=== PATIENT | male | born 1975 | race African-American/Black ===

== ENCOUNTER 2018-01-16 13:59 | Emergency (ER) | payer BC, OTHER ==
[~2018-01-16] VITALS: Ht 172.7 cm; Wt 65.8 kg
[~2018-01-16 13:59] MED LIST: IBUPROFEN600 MG ORAL; IBUPROFEN800 MG ORAL; NKM; NORCO 5-325 TA1 EACH ORAL; TRAMADOL HCL50 MG ORAL
[2018-01-16 14:11] VITALS: BP 144/97
[2018-01-16] MEDS ORDERED: Acetaminophen 500mg (ES) tab ORAL ONE (14:15)
--- NOTE | 2018-01-16 14:48 | Emergency Room Report ---
History of Present Illness General Chief Complaint: Upper Extremity Injury Source: Patient Present Illness HPI 42-year-old male patient reports the ER complaining of right elbow pain status post falling off his skateboard 1 week ago. states that the pain and swelling have subsided but because the pain is still present he wanted to come in and get evaluated. reports pain in elbow moving to the wrist. Reports pain with movement. Reports right-hand dominant. Reports decreased range of motion secondary to the pain. Denies hitting his head or loss of consciousness. Denies fever, chest pain, shortness of breath, other acute symptoms. Allergies: Coded Allergies: No Known Allergies (Unverified , 12/16/13) Patient History Past Medical History: see triage record Reviewed Nursing Documentation: PMH: Agreed; PSxH: Agreed Nursing Documentation-PMH Past Medical History: No Stated History Review of Systems All Other Systems: negative except mentioned in HPI Physical Exam Vital Signs Date Time Temp Pulse Resp B/P (MAP) Pulse Ox O2 Delivery O2 Flow Rate FiO2 01/16/18 14:01 98.8 78 18 144/97 98 Room Air 98.8 Sp02 EP Interpretation: reviewed, normal General Appearance: well appearing, no apparent distress, alert, GCS 15, non- toxic Head: normocephalic, atraumatic Eyes: bilateral eye normal inspection, bilateral eye PERRL ENT: hearing grossly normal, normal pharynx, no angioedema, normal voice, uvula midline, moist mucus membranes Neck: full range of motion Respiratory: lungs clear, normal breath sounds, no rhonchi, no respiratory distress, no accessory muscle use, no wheezing, speaking full sentences Cardiovascular #1: regular rate, rhythm, no edema Cardiovascular #2: 2+ radial (R), 2+ radial (L) Musculoskeletal: back normal, digits/nails normal, gait/station normal, normal range of motion, other - AIN, PID, radial nerve is intact, no snuffbox tenderness, no erythema or ecchymosis, no edema, no deformity, tender - right elbow over medial and lateral aspect Neurologic: alert, oriented x3, responsive, motor strength/tone normal, sensory intact Psychiatric: mood/affect normal Skin: no rash Medical Decision Making PA Attestation Dr. Vallejo is my supervising Physician whom patient management has been discussed with. Diagnostic Impression: Primary Impression: Elbow pain, right Additional Impression: Wrist pain ER Course Pt. presents to the ED c/o right elbow and wrist pain. Ddx considered but are not limited to fracture, sprain, strain, contusion, dislocation. No erythema, no warmth to touch, no fever, nontoxic appearing, low suspicion for septic joint. Vital signs: are WNL, pt. is afebrile Ordered X-ray and pain medication. ER COURSE Provided with pain medication. An X-ray of the right elbow negative for acute disease, shows appearance of possible joint effusion, no posterior sail sign per preliminary reading. Consult with Dr. Vallejo, agrees with x-ray interpretation. An X-ray of the right wrist negative for acute disease per the preliminary reading. Sent image to [facility] for official reading. Agrees with preliminary readings. Thumb spica splint was applied to the right wrist and arm sling applied to right arm, was checked afterwards by me showing good alignment and support with distal neurovascular functioning intact. may remove splint and sling at home to perform range of motion exercises to help prevent stiffness. Patient instructed on RICE method: rest, ice, compression, elevation. Patient instructed on rest, ice and heat. Patient instructed to be WBAT Followup with primary care provider. Discuss referral to ortho/pain management/ PT as needed. Discuss further imaging with MRI/CT as needed. DISCHARGE: -Rx provided for Ibuprofen for pain symptoms. At this time pt. is stable for d/c to home. Patient is resting comfortably, in no acute distress, nontoxic appearing, talking without difficulty. Will provide printed patient care instructions, and any necessary prescriptions. Patient instructed to follow with primary care provider in 3 - 5 days and to request further follow-up as needed. Care plan and follow up instructions have been discussed with the patient prior to discharge. Take medications as directed. Patient questions asked and answered. Patient reports understanding and agreement to treatment plan. ER precautions given, patient instructed to return to ER immediately for any new or worsening of symptoms. - Please note that this Emergency Department Report was dictated using [employer] tender technology software, occasionally this can lead to erroneous entry secondary to interpretation by the dictation equipment. Other X-Ray Diagnostic Results Other X-Ray Diagnostic Results #1: X-Ray ordered: right elbow # of Views/Limited Vs Complete: 3 View Indication: Pain EP Interpretation: Yes PA Xray: Interpretation reviewed, by supervising MD, and agrees with findings. Interpretation: no dislocation, no soft tissue swelling, no fractures, other - possible joint effusion noted Impression: No acute disease MEHDI Scribe Text Bryce Walker PA-C Other X-Ray Diagnostic Results #2: X-Ray ordered: right wrist # of Views/Limited Vs Complete: 3 View Indication: Pain EP Interpretation: Yes PA Xray: Interpretation reviewed, by supervising MD, and agrees with findings. Interpretation: no dislocation, no soft tissue swelling, no fractures Impression: No acute disease PA Scribe Raulito Walker PA-C Last Vital Signs Date Time Temp Pulse Resp B/P (MAP) Pulse Ox O2 Delivery O2 Flow Rate FiO2 01/16/18 14:18 98.8 01/16/18 14:11 18 144/97 98 Room Air 01/16/18 14:01 78 Disposition: HOME, SELF-CARE Condition: Stable Scripts Ibuprofen* (MOTRIN*) 800 Mg Tablet 800 MG ORAL Q8H, #30 TAB 0 Refills Prov: Dino Walker 01/16/18 Patient Instructions: Elbow Contusion, [id number], Wrist Pain, [id number] Additional Instructions: Patient instructed to follow up with primary care provider and discuss further referral to orthopedics. Patient instructed on RICE method: rest, ice, compression, elevation. Patient instructed to WBAT. Take medications as directed. Patient questions asked and answered. ER precautions given, patient instructed to return to ER immediately for any new or worsening of symptoms. Dino Walker Jan 16, 2018 14:48
[2018-01-16] MEDS ORDERED: IBUPROFEN800 MG ORAL (15:45)
[2018-01-16 15:58] VITALS: BP 147/88
--- NOTE | 2018-01-17 13:48 | Diagnostic Imaging Report ---
Indication: Pain Technique: XRAY Wrist Complete R Comparison: 12/16/2013 Findings: No acute fracture or dislocation. Alignment joint spaces preserved. No radiopaque foreign body identified. Impression: No acute fracture or dislocation.
--- NOTE | 2018-01-17 13:58 | Diagnostic Imaging Report ---
Indication: Pain status post injury Technique: XRAY Elbow Min 3v R Comparison: None FINDINGS/IMPRESSION: No definite/displaced acute fracture. No dislocation. No radiopaque foreign body. Possible small elbow joint effusion raising question for possible radiographically occult fracture. Clinical correlation/follow-up recommended. This corresponds with the [facility] preliminary report.
== END 2018-01-16 16:01 | disposition home or self-care (01) ==
LOC: EMR 14:54
DX: M25.521 Pain in right elbow (principal); M25.531 Pain in right wrist; V00.131A Fall from skateboard, initial encounter; Y92.9 Unspecified place or not applicable
CPT/HCPCS: 99283